=== PATIENT | female | born 1940 | race Caucasian/White ===

== ENCOUNTER 2018-11-14 08:38 | Outpatient (CLI) | payer MEDICARE, OTHER ==
--- NOTE | 2018-11-14 10:37 | RAD ---
CHEST 2 VIEWS: HISTORY: Shortness of breath, cough. FINDINGS: Heart size is within normal limits. Atherosclerotic changes are noted of the aorta. No confluent pn eumonia, overt edema, or pleural effusion. IMPRESSION: No significant acute intrathoracic disease. Atherosclerosis of the aorta. POS: TPC
== END 2018-11-14 08:39 | disposition home or self-care (01) ==
LOC: BICRAD 08:38
PROVIDERS: ATTEND Family Medicine
DX: R06.02 Shortness of breath (principal); I70.0 Atherosclerosis of aorta
CPT/HCPCS: 71046

== ENCOUNTER 2019-09-10 09:11 | Outpatient (CLI) | payer MEDICARE ==
--- NOTE | 2019-09-10 10:40 | MMO ---
Bilateral MAMMO Bilat Screen [facility]. CLINICAL HISTORY: Patient is 79 years old and is seen for screening. The patient has the following family history of breast cancer: mother, at age 73; sister, at age 51 and sister, at age 58. VIEWS: The views performed were: bilateral craniocaudal with tomosynthesis and bilateral mediolateral oblique with tomosynthesis. FILMS COMPARED: The present examination has been compared to prior imaging studies performed at [facility] on 10/08/2008, 10/18/2009, 10/19/2010 and 08/05/2014. This study has been interpreted with the assistance of computer-aided detection. MAMMOGRAM FINDINGS: There are scattered fibroglandular densities. There is a focal asymmetry seen in the middle region of the left breast at 9 o'clock. In the right breast, there are no suspicious masses, calcifications or areas of architectural distortion. IMPRESSION: FOCAL ASYMMETRY IN THE LEFT BREAST REQUIRES ADDITIONAL EVALUATION. SPOT COMPRESSION IS RECOMMENDED. AN ULTRASOUND EXAM IS RECOMMENDED. THE RESULTS OF THIS EXAM WERE SENT TO THE PATIENT. ACR BI-RADS Category 0 - Incomplete: Need additional imaging evaluation. [place] [facility] will notify the patient of the need for additional imaging services. MAMMOGRAPHY NOTE: 1. A negative mammogram report should not delay a biopsy if a dominant of clinically suspicious mass is present. 2. Approximately 10% to 15% of breast cancers are not detected by mammography. 3. Adenosis and dense breasts may obscure an underlying neoplasm. Reported by: Jose G MCKAY Electonically Signed: [id number]
== END 2019-09-10 09:12 | disposition home or self-care (01) ==
LOC: BICMAMMO 09:11
PROVIDERS: ATTEND Family Medicine
DX: Z12.31 Encounter for screening mammogram for malignant neoplasm of breast (principal); N64.89 Other specified disorders of breast; Z80.3 Family history of malignant neoplasm of breast
CPT/HCPCS: 77063; 77067

== ENCOUNTER 2020-03-03 08:13 | Outpatient (CLI) | payer MEDICARE ==
--- NOTE | 2020-03-03 09:09 | MMO ---
Left Breast MAMMO Unilat Diag [facility]. CLINICAL HISTORY: Patient is 79 years old and is seen for diagnostic exam. The patient has the following family history of breast cancer: mother, at age 73; sister, at age 51 and sister, at age 58. VIEWS: The views performed were: left craniocaudal with tomosynthesis; left mediolateral oblique with tomosynthesis; and left mediolateral with tomosynthesis. FILMS COMPARED: The present examination has been compared to prior imaging studies performed at [facility] on 09/10/2019, 09/16/2019 and 03/03/2020. This study has been interpreted with the assistance of computer-aided detection. MAMMOGRAM FINDINGS: There are scattered fibroglandular densities. The nodule in the left inner breast remains stable. IMPRESSION: FINDING IN THE LEFT BREAST IS PROBABLY BENIGN. FOLLOW-UP IN 6 MONTHS IS RECOMMENDED. THE RESULTS OF THIS EXAM WERE SENT TO THE PATIENT. ACR BI-RADS Category 3 - Probably benign finding - short interval follow-up suggested. [facility] will notify the patient of the need for additional imaging services. MAMMOGRAPHY NOTE: 1. A negative mammogram report should not delay a biopsy if a dominant of clinically suspicious mass is present. 2. Approximately 10% to 15% of breast cancers are not detected by mammography. 3. Adenosis and dense breasts may obscure an underlying neoplasm. Reported by: LEVON SOLO MD Electonically Signed: [id number]
--- NOTE | 2020-03-03 09:24 | ULT ---
LEFT BREAST ULTRASOUND: HISTORY: Six-month followup. COMPARISON: Correlation is made with a mammogram of today and comparison is made with ultrasound of 09/16/2019. FINDINGS: The sonographic evaluation of the left upper inner breast redemonstrates a 10 x 6 x 3 mm cyst with se ptation at 10:00. IMPRESSION: BIRADS category 3 - probably benign findings. Followup left diagnostic mammogram and ultrasound is r ecommended in 6 months. POS: OFF
== END 2020-03-03 08:14 | disposition home or self-care (01) ==
LOC: BICMAMMO 08:13
PROVIDERS: ATTEND Family Medicine
DX: N60.02 Solitary cyst of left breast (principal); Z80.3 Family history of malignant neoplasm of breast
CPT/HCPCS: 76642; 77065; G0279

== ENCOUNTER 2020-09-08 10:18 | Outpatient (CLI) | payer MEDICARE | END 2020-09-08 10:19 | disposition home or self-care (01) | LOC: BICMAMMO 10:18 | PROVIDERS: ATTEND Family Medicine | DX: N60.02 Solitary cyst of left breast (principal); N63.20 Unspecified lump in the left breast, unspecified quadrant | CPT/HCPCS: 76642; 77066; G0279 ==

== ENCOUNTER 2021-09-14 09:40 | Outpatient (CLI) | payer MEDICARE | END 2021-09-14 09:41 | disposition home or self-care (01) | LOC: BICMAMMO 09:40 | PROVIDERS: ATTEND Family Medicine | DX: N63.20 Unspecified lump in the left breast, unspecified quadrant (principal); N60.02 Solitary cyst of left breast | CPT/HCPCS: 77066; G0279 ==

== ENCOUNTER 2023-08-25 04:36 | Inpatient (IN) | payer MEDICARE ==
[2023-08-25 08:40] LABS: #Basophils 0.04 10x3/uL (0.0-0.2); %Basophils 0.2 % (0.0-1.0); %Eosinophils 0.4 % (0.0-10.0); %Lymphocytes 12.9 % (21.0-51.0); %Monocytes 9.8 % (0.0-10.0); %Neutrophils 76.2 % (42.0-75.0); Hematocrit 40.4 % (36.0-47.0); Hemoglobin 13.3 g/dL (12.0-16.0); Mean Corpuscular HGB CONC 32.9 g/dL (32.0-36.0); Mean Corpuscular Hemoglobin 29.8 pg (27.0-31.0); Mean Corpuscular Volume 90.6 fL (78.0-98.0); Mean Platelet Volume 10.1 fL (7.4-10.4); Platelet Count 183 10x3/uL (130-400); RBC Distribution Width 14.3 % (11.5-14.5); Red Blood Cell (RBC) Count 4.46 mill/uL (4.20-5.40)
[2023-08-25 08:54] LABS: INR-International Normal Ratio 1.2; PTT 29.5 sec (22.9-36.1); Prothrombin Time 15.2 sec (12.0-14.7)
[2023-08-25 08:57] LABS: Globulin 3.7 g/dL (2.4-3.5)
[2023-08-25 09:02] LABS: Albumin 2.7 g/dL (3.4-4.8); Anion Gap 13 mmol/L (10-20); BUN (Urea Nitrogen) 16 mg/dL (9.8-20.1); Calc. Creatinine Clearance 62 mL/min (70-130); Carbon Dioxide 26 mmol/L (23-31); Chloride 98 mmol/L (98-107); Estimated GFR 68; Potassium 3.9 mmol/L (3.5-5.1); Protein, Total 6.4 g/dL (5.8-8.1); Sodium 133 mmol/L (136-145)
[2023-08-25 09:04] LABS: Troponin I 0.015 ng/mL (< 0.028)
[2023-08-25 09:13] LABS: ALT (SGPT) 49 U/L (8-55); AST (SGOT) 53 U/L (5-34); Alkaline Phosphatase 136 U/L (40-110); Bilirubin, Total 1.2 mg/dL (0.2-1.2); Glucose 109 mg/dL (83-110); Magnesium 1.7 mg/dL (1.6-2.6)
[2023-08-25 11:49] LABS: Troponin I 0.016 ng/mL (< 0.028)
[2023-08-25] MEDS: Morphine 2 MG/ML VIAL SLOW IVP SCH ×2 (17:48→18:15)
[2023-08-25] MEDS: Morphine 4 MG/ML VIAL ONE ×2 (17:50→18:48)
[2023-08-25] MEDS: Amiodarone 450 MG in Dextrose 5% in Water 250 ML IVPB SCH (17:56)
[2023-08-25] MEDS ORDERED: Loratadine 10 MG TAB PO PRN (19:13)
[2023-08-25] MEDS: Enoxaparin 80 MG (0.8 mL) SYRINGE SC SCH (19:40)
[2023-08-25] MEDS: cloNIDine 0.2 MG TAB PO SCH (19:40)
[2023-08-25] MEDS: Ondansetron PF 4 MG/2 ML Vial IVP PRN (19:41)
[2023-08-25] MEDS: Atenolol 25 MG TAB PO SCH (19:41)
[2023-08-25] MEDS ORDERED: Ondansetron ODT 4 MG TAB PO SCH (23:59)
[2023-08-26] MEDS: Ketorolac Tromethamine 30 MG (1 mL) VIAL IVP SCH (00:25)
[2023-08-26] MEDS: traMADol HCl 50 MG TAB PO PRN (00:26)
[2023-08-26] MEDS: Levothyroxine Sodium 50 MCG TAB PO SCH (05:10)
[2023-08-26 05:56] LABS: #Basophils 0.04 10x3/uL (0.0-0.2); %Basophils 0.2 % (0.0-1.0); %Eosinophils 0.4 % (0.0-10.0); %Lymphocytes 11.2 % (21.0-51.0); %Monocytes 9.8 % (0.0-10.0); %Neutrophils 77.7 % (42.0-75.0); Hematocrit 35.9 % (36.0-47.0); Hemoglobin 11.9 g/dL (12.0-16.0); Mean Corpuscular HGB CONC 33.1 g/dL (32.0-36.0); Mean Corpuscular Hemoglobin 30.4 pg (27.0-31.0); Mean Corpuscular Volume 91.8 fL (78.0-98.0); Mean Platelet Volume 10.1 fL (7.4-10.4); Platelet Count 184 10x3/uL (130-400); RBC Distribution Width 14.4 % (11.5-14.5); Red Blood Cell (RBC) Count 3.91 mill/uL (4.20-5.40)
[2023-08-26 06:02] LABS: Hemoglobin A1c 5.4 % (4.0-6.0)
[2023-08-26 06:27] LABS: ALT (SGPT) 32 U/L (8-55); AST (SGOT) 25 U/L (5-34); Albumin 2.4 g/dL (3.4-4.8); Alkaline Phosphatase 112 U/L (40-110); Bilirubin, Direct 0.3 mg/dL (0.1-0.3); Bilirubin, Total 0.9 mg/dL (0.2-1.2); Protein, Total 5.7 g/dL (5.8-8.1)
[2023-08-26 06:30] LABS: Anion Gap 13 mmol/L (10-20); BUN (Urea Nitrogen) 20 mg/dL (9.8-20.1); Calc. Creatinine Clearance 54 mL/min (70-130); Calcium 9.7 mg/dL (7.8-10.44); Carbon Dioxide 22 mmol/L (23-31); Cardiac Risk 3.6 (Less than 4.5); Chloride 99 mmol/L (98-107); Cholesterol 165 mg/dl (< 200 Desired); Estimated GFR 56; Glucose 111 mg/dL (83-110); HDL Cholesterol 46 mg/dL (>60 Neg Risk); LDL Cholesterol, Calculated 103 mg/dL; Magnesium 1.7 mg/dL (1.6-2.6); Potassium 4.6 mmol/L (3.5-5.1); Sodium 129 mmol/L (136-145); Triglycerides 82 mg/dL (Less than 150)
[2023-08-26] MEDS: cloNIDine 0.1 MG TAB PO SCH (09:51)
[2023-08-26] MEDS: Allopurinol 100 MG TAB PO SCH (09:51)
[2023-08-26] MEDS: Losartan 25 MG TAB PO SCH (09:52)
[2023-08-26] MEDS: Spironolactone 25 MG TAB PO SCH (09:53)
[2023-08-26] MEDS: Magnesium Oxide 400 MG TAB PO SCH (20:16)
[2023-08-26] MEDS: Amiodarone 200 MG TAB PO SCH (20:16)
[2023-08-26 22:45] LABS: Anion Gap 17 mmol/L (10-20); BUN (Urea Nitrogen) 24 mg/dL (9.8-20.1); Calc. Creatinine Clearance 49 mL/min (70-130); Calcium 10.2 mg/dL (7.8-10.44); Carbon Dioxide 22 mmol/L (23-31); Chloride 95 mmol/L (98-107); Estimated GFR 50; Glucose 91 mg/dL (83-110); Potassium 4.7 mmol/L (3.5-5.1); Sodium 129 mmol/L (136-145)
[2023-08-26] MEDS: Morphine 2 MG/ML VIAL SLOW IVP SCH (23:07)
[2023-08-27] MEDS ORDERED: Bupivacaine PF 0.5% 30 ML VIAL ONE (06:56)
[2023-08-27] MEDS ORDERED: EPINEPHrine 1 MG/ML VIAL ONE (06:56)
[2023-08-27] MEDS ORDERED: CEFAZOLIN 2 GM VIAL ONE (07:20)
[2023-08-27] MEDS ORDERED: Sodium Chloride 0.9% 100 ML ONE (07:21)
[2023-08-27] MEDS ORDERED: Rocuronium Bromide 10 MG/ML (10ML VIAL) ONE (07:31)
[2023-08-27] MEDS ORDERED: PROPOFOL 20 ML ONE (07:31)
[2023-08-27] MEDS ORDERED: fentaNYL 50 mcg/mL 1 mL Vial ONE ×3 (07:31→11:18)
[2023-08-27] MEDS ORDERED: PHENYLEPHRINE-NS 100 MCG/ML 10 ML SYRINGE ONE (08:03)
[2023-08-27] MEDS ORDERED: Ondansetron PF 4 MG/2 ML Vial ONE (09:01)
[2023-08-27] MEDS ORDERED: Metoclopramide HCl 10 MG (2 mL) VIAL ONE (09:02)
[2023-08-27 09:15] LABS: Anion Gap 13 mmol/L (10-20); BUN (Urea Nitrogen) 23 mg/dL (9.8-20.1); Calc. Creatinine Clearance 54 mL/min (70-130); Calcium 10.1 mg/dL (7.8-10.44); Carbon Dioxide 26 mmol/L (23-31); Chloride 94 mmol/L (98-107); Estimated GFR 56; Glucose 109 mg/dL (83-110); Magnesium 1.8 mg/dL (1.6-2.6); Potassium 4.4 mmol/L (3.5-5.1); Sodium 129 mmol/L (136-145)
[2023-08-27 09:55] LABS: #Basophils 0.04 10x3/uL (0.0-0.2); %Basophils 0.2 % (0.0-1.0); %Eosinophils 0.6 % (0.0-10.0); %Lymphocytes 11.4 % (21.0-51.0); %Monocytes 6.7 % (0.0-10.0); %Neutrophils 80.7 % (42.0-75.0); Hematocrit 39.5 % (36.0-47.0); Hemoglobin 12.7 g/dL (12.0-16.0); Mean Corpuscular HGB CONC 32.2 g/dL (32.0-36.0); Mean Corpuscular Hemoglobin 29.5 pg (27.0-31.0); Mean Corpuscular Volume 91.9 fL (78.0-98.0); Mean Platelet Volume 10.7 fL (7.4-10.4); Platelet Count 225 10x3/uL (130-400)
[2023-08-27] MEDS ORDERED: Promethazine HCl 25 MG/ML VIAL IM PRN (10:07)
[2023-08-27] MEDS ORDERED: Ipratropium/Albuterol 3 ML NEB NEB PRN (10:07)
[2023-08-27] MEDS ORDERED: SUGAMMADEX SODIUM 200 MG/2 ML VIAL ONE (10:08)
[2023-08-27] MEDS ORDERED: fentaNYL PF 100 MCG/2 ML SYRINGE ONE ×2 (10:26→12:35)
[2023-08-27] MEDS ORDERED: Promethazine HCl 25 MG/ML VIAL ONE (11:10)
[2023-08-27] MEDS: Magnesium Oxide 400 MG TAB PO SCH (16:47)
[2023-08-27] MEDS: Morphine 2 MG/ML VIAL SLOW IVP PRN (16:48)
[2023-08-27] MEDS: CEFAZOLIN 2 GM in Sodium Chloride 0.9% 100 ML IVPB SCH (16:51)
[2023-08-27] MEDS: Morphine 2 MG/ML VIAL SLOW IVP SCH (19:01)
[2023-08-27] MEDS: hydrALAZINE 20 MG/ML VIAL SLOW IVP PRN (19:01)
[2023-08-27] MEDS: traMADol HCl 50 MG TAB PO PRN (19:40)
[2023-08-27] MEDS: Acetaminophen 325 MG TAB PO PRN (20:58)
[2023-08-27] MEDS: Morphine 4 MG/ML VIAL SLOW IVP PRN (20:59)
[2023-08-27] MEDS: Metoprolol Tartrate 5 MG (5 mL) VIAL IVP PRN (22:25)
[2023-08-27] MEDS: Ketorolac Tromethamine 30 MG (1 mL) VIAL IVP SCH (23:41)
[2023-08-28 01:38] LABS: Anion Gap 13 mmol/L (10-20); BUN (Urea Nitrogen) 16 mg/dL (9.8-20.1); Calc. Creatinine Clearance 67 mL/min (70-130); Calcium 9.5 mg/dL (7.8-10.44); Carbon Dioxide 22 mmol/L (23-31); Chloride 98 mmol/L (98-107); Estimated GFR 74; Glucose 126 mg/dL (83-110); Potassium 4.4 mmol/L (3.5-5.1); Sodium 129 mmol/L (136-145)
[2023-08-28 04:21] LABS: #Basophils Less than 0.03 10x3/uL (0.0-0.2); #Eosinphils Less than 0.03 10x3/uL (0.0-0.7); %Basophils 0.2 % (0.0-1.0); %Eosinophils 0.1 % (0.0-10.0); %Lymphocytes 7.8 % (21.0-51.0); %Monocytes 6.9 % (0.0-10.0); %Neutrophils 84.5 % (42.0-75.0); Hematocrit 31.6 % (36.0-47.0); Hemoglobin 10.1 g/dL (12.0-16.0); Mean Corpuscular Hemoglobin 29.4 pg (27.0-31.0); Mean Corpuscular Volume 92.1 fL (78.0-98.0); Mean Platelet Volume 10.1 fL (7.4-10.4); Platelet Count 196 10x3/uL (130-400); RBC Distribution Width 14.1 % (11.5-14.5); Red Blood Cell (RBC) Count 3.43 mill/uL (4.20-5.40)
[2023-08-28 04:47] LABS: Globulin 3.2 g/dL (2.4-3.5)
[2023-08-28 04:51] LABS: ALT (SGPT) 30 U/L (8-55); AST (SGOT) 27 U/L (5-34); Alkaline Phosphatase 171 U/L (40-110); Anion Gap 12 mmol/L (10-20); BUN (Urea Nitrogen) 16 mg/dL (9.8-20.1); Bilirubin, Total 0.5 mg/dL (0.2-1.2); Calc. Creatinine Clearance 67 mL/min (70-130); Calcium 9.2 mg/dL (7.8-10.44); Carbon Dioxide 25 mmol/L (23-31); Chloride 98 mmol/L (98-107); Estimated GFR 68; Glucose 109 mg/dL (83-110); Magnesium 1.7 mg/dL (1.6-2.6); Potassium 4.6 mmol/L (3.5-5.1); Protein, Total 5.2 g/dL (5.8-8.1); Sodium 130 mmol/L (136-145)
[2023-08-28] MEDS: Albumin 25% 25 GM (100 mL) BOT IVPB SCH ×2 (06:46→12:30)
[2023-08-28] MEDS: Lidocaine 4% Patch TD SCH (08:48)
[2023-08-28] MEDS: HYDROcodone/Acetaminophen 5/325 mg Tablet PO PRN (09:18)
[2023-08-28] MEDS: Amlodipine 5 MG TAB PO SCH (18:35)
[2023-08-28] MEDS: Milk Of Magnesia 30 ML UDCUP PO SCH (21:19)
[2023-08-28] MEDS: Senokot S 8.6-50 MG TAB PO SCH (21:19)
[2023-08-29 04:56] LABS: #Basophils 0.03 10x3/uL (0.0-0.2); %Basophils 0.3 % (0.0-1.0); %Eosinophils 2.4 % (0.0-10.0); %Monocytes 6.4 % (0.0-10.0); %Neutrophils 68.5 % (42.0-75.0); Hematocrit 30.5 % (36.0-47.0); Hemoglobin 9.9 g/dL (12.0-16.0); Mean Corpuscular HGB CONC 32.5 g/dL (32.0-36.0); Mean Corpuscular Hemoglobin 29.1 pg (27.0-31.0); Mean Corpuscular Volume 89.7 fL (78.0-98.0); Platelet Count 190 10x3/uL (130-400); RBC Distribution Width 13.7 % (11.5-14.5)
[2023-08-29 05:04] LABS: Globulin 2.6 g/dL (2.4-3.5)
[2023-08-29 05:08] LABS: ALT (SGPT) 18 U/L (8-55); AST (SGOT) 25 U/L (5-34); Alkaline Phosphatase 187 U/L (40-110); Anion Gap 13 mmol/L (10-20); BUN (Urea Nitrogen) 17 mg/dL (9.8-20.1); Bilirubin, Total 0.8 mg/dL (0.2-1.2); Calc. Creatinine Clearance 75 mL/min (70-130); Calcium 9.8 mg/dL (7.8-10.44); Carbon Dioxide 25 mmol/L (23-31); Chloride 98 mmol/L (98-107); Estimated GFR 78; Glucose 88 mg/dL (83-110); Magnesium 1.9 mg/dL (1.6-2.6); Potassium 4.1 mmol/L (3.5-5.1); Protein, Total 5.6 g/dL (5.8-8.1); Sodium 132 mmol/L (136-145)
[2023-08-29] MEDS: Furosemide 20 MG (2 mL) VIAL SLOW IVP SCH (09:38)
[2023-08-29] MEDS: Ibuprofen 600 MG TAB PO SCH (13:09)
[2023-08-29] MEDS: Amlodipine 5 MG TAB PO SCH (13:10)
[2023-08-30 04:30] LABS: #Basophils 0.04 10x3/uL (0.0-0.2); %Basophils 0.4 % (0.0-1.0); %Eosinophils 3.6 % (0.0-10.0); %Lymphocytes 23.9 % (21.0-51.0); %Monocytes 7.3 % (0.0-10.0); %Neutrophils 64.4 % (42.0-75.0); Hematocrit 34.1 % (36.0-47.0); Hemoglobin 11.4 g/dL (12.0-16.0); Mean Corpuscular HGB CONC 33.4 g/dL (32.0-36.0); Mean Corpuscular Hemoglobin 29.6 pg (27.0-31.0); Mean Corpuscular Volume 88.6 fL (78.0-98.0); Mean Platelet Volume 9.4 fL (7.4-10.4); Platelet Count 265 10x3/uL (130-400); RBC Distribution Width 13.5 % (11.5-14.5); Red Blood Cell (RBC) Count 3.85 mill/uL (4.20-5.40)
[2023-08-30 04:49] LABS: Anion Gap 13 mmol/L (10-20); BUN (Urea Nitrogen) 16 mg/dL (9.8-20.1); Calc. Creatinine Clearance 55 mL/min (70-130); Calcium 9.9 mg/dL (7.8-10.44); Carbon Dioxide 29 mmol/L (23-31); Chloride 96 mmol/L (98-107); Estimated GFR 56; Glucose 95 mg/dL (83-110); Magnesium 1.9 mg/dL (1.6-2.6); Potassium 3.6 mmol/L (3.5-5.1); Sodium 134 mmol/L (136-145)
[2023-08-30 05:21] VITALS: BMI 29.4
[2023-08-30] MEDS: Amlodipine 5 MG TAB PO SCH (07:53)
[2023-08-30] MEDS: Furosemide 20 MG (2 mL) VIAL SLOW IVP SCH (09:07)
[2023-08-31 04:20] LABS: RBC Distribution Width 13.5 % (11.5-14.5)
[2023-08-31 04:38] LABS: Anion Gap 14 mmol/L (10-20); BUN (Urea Nitrogen) 19 mg/dL (9.8-20.1); Calc. Creatinine Clearance 55 mL/min (70-130); Calcium 9.5 mg/dL (7.8-10.44); Carbon Dioxide 27 mmol/L (23-31); Chloride 97 mmol/L (98-107); Estimated GFR 58; Glucose 90 mg/dL (83-110); Magnesium 1.8 mg/dL (1.6-2.6); Potassium 3.1 mmol/L (3.5-5.1); Sodium 135 mmol/L (136-145)
[2023-08-31 04:52] LABS: #Basophils Less than 0.03 10x3/uL (0.0-0.2); %Basophils 0.2 % (0.0-1.0); %Eosinophils 4.9 % (0.0-10.0); %Lymphocytes 29.8 % (21.0-51.0); %Monocytes 7.1 % (0.0-10.0); %Neutrophils 57.6 % (42.0-75.0); Hematocrit 32.1 % (36.0-47.0); Hemoglobin 10.8 g/dL (12.0-16.0); Mean Corpuscular HGB CONC 33.6 g/dL (32.0-36.0); Mean Corpuscular Hemoglobin 29.4 pg (27.0-31.0); Mean Corpuscular Volume 87.5 fL (78.0-98.0); Mean Platelet Volume 9.5 fL (7.4-10.4); Platelet Count 260 10x3/uL (130-400); Red Blood Cell (RBC) Count 3.67 mill/uL (4.20-5.40)
[2023-08-31] MEDS: Magnesium 2 GM/50 ML(in water) 2 GM in Premix 1 BAG IVPB SCH (08:27)
[2023-08-31] MEDS: Potassium Chloride 20 MEQ TAB PO SCH (08:28)
[2023-08-31] MEDS: Spironolactone 25 MG TAB PO SCH (08:29)
[2023-08-31 11:44] VITALS: BP 136/100; TEMP 97.6
== END 2023-08-31 14:00 | disposition home or self-care (01) | DRG 270 ==
LOC: 2NO 06:40 → CCU 08-27 07:52 → 2NO 08-27 16:36
PROVIDERS: ADMIT Internal Medicine; ATTEND Internal Medicine
PROC: 0W9D4ZZ Drainage of Pericardial Cavity, Percutaneous Endoscopic Approach (ICD-10-PCS; principal; 2023-08-27)
PROC: 0W9B4ZZ Drainage of Left Pleural Cavity, Percutaneous Endoscopic Approach (ICD-10-PCS; 2023-08-27)
PROC: 3E033XZ Introduction of Vasopressor into Peripheral Vein, Percutaneous Approach (ICD-10-PCS; 2023-08-27)
PROC: 30233J1 Transfusion of Nonautologous Serum Albumin into Peripheral Vein, Percutaneous Approach (ICD-10-PCS; 2023-08-28)
DX: T82.7XXA Infection and inflammatory reaction due to other cardiac and vascular devices, implants and grafts, initial encounter (principal); J15.7 Pneumonia due to Mycoplasma pneumoniae; J96.01 Acute respiratory failure with hypoxia; E22.2 Syndrome of inappropriate secretion of antidiuretic hormone; I50.32 Chronic diastolic (congestive) heart failure; I13.0 Hypertensive heart and chronic kidney disease with heart failure and stage 1 through stage 4 chronic kidney disease, or unspecified chronic kidney disease; I31.39 Other pericardial effusion (noninflammatory); E88.09 Other disorders of plasma-protein metabolism, not elsewhere classified; N18.2 Chronic kidney disease, stage 2 (mild); D72.829 Elevated white blood cell count, unspecified; I48.0 Paroxysmal atrial fibrillation; E83.42 Hypomagnesemia; E03.9 Hypothyroidism, unspecified; K59.00 Constipation, unspecified; Z66 Do not resuscitate; Z79.899 Other long term (current) drug therapy; Z79.01 Long term (current) use of anticoagulants; Z88.8 Allergy status to other drugs, medicaments and biological substances; Z90.710 Acquired absence of both cervix and uterus; Z90.49 Acquired absence of other specified parts of digestive tract; I49.5 Sick sinus syndrome; E78.5 Hyperlipidemia, unspecified; K21.9 Gastro-esophageal reflux disease without esophagitis; M10.9 Gout, unspecified; R55 Syncope and collapse; I11.0 Hypertensive heart disease with heart failure; I50.9 Heart failure, unspecified; Z95.0 Presence of cardiac pacemaker
CPT/HCPCS: 36415; 36416; 51701; 70450; 71045; 71275; 72125; 80048; 80053; 80061; 80076; 81001; 83036; 83605; 83735; 83930; 83935; 84484; 85025; 85610; 85730; 86850; 86900; 86901; 87040; 87070; 87086; 87205; 88112; 88305; 93005; 93306; 94760; 96365; 96366; 96367; 96375; 96376; J0171; J0282; J0360; J0665; J0696; J1650; J1885; J1940; J2270; J2272; J2405; J2550; J2704; J2765; J3010; J3370; J3475; J3490; J7070; P9047; Q9967

== ENCOUNTER 2023-09-19 12:57 | Outpatient (CLI) | payer MEDICARE | END 2023-09-19 12:58 | disposition home or self-care (01) | LOC: RAD 12:57 | PROVIDERS: ATTEND Student in an Organized Health Care Education/Training Program | DX: I31.39 Other pericardial effusion (noninflammatory) (principal); J90 Pleural effusion, not elsewhere classified | CPT/HCPCS: 71046 ==

== ENCOUNTER 2025-02-26 02:12 | Emergency (ER) | payer MEDICARE ==
[2025-02-26] MEDS ORDERED: Ondansetron PF 4 MG/2 ML Vial ONE (02:44)
[2025-02-26] MEDS ORDERED: Famotidine/PF 20 mg/2ml Vial ONE (02:45)
[2025-02-26 02:47] LABS: #Basophils Less than 0.03 10x3/uL (0.0-0.2); #Eosinophils Less than 0.03 10x3/uL (0.0-0.7); #Monocytes 0.62 10x3/uL (0.11-0.59); #Neutrophils 12.56 10x3/uL (1.40-6.50); %Basophils 0.1 % (0.0-1.0); %Eosinophils 0.1 % (0.0-10.0); %Lymphocytes 8.4 % (21.0-51.0); %Monocytes 4.3 % (0.0-10.0); %Neutrophils 86.8 % (42.0-75.0); Hematocrit 45.7 % (36.0-47.0); Hemoglobin 15.1 g/dL (12.0-16.0); Mean Corpuscular Hemoglobin 30.0 pg (27.0-31.0); Mean Corpuscular Volume 90.9 fL (78.0-98.0); Platelet Count 269 10x3/uL (130-400); Red Blood Cell (RBC) Count 5.03 mill/uL (4.20-5.40); White Blood Cell (WBC) Count 14.49 10x3/uL (4.8-10.8)
[2025-02-26 03:04] LABS: ALT (SGPT) 12 U/L (Less than 34); AST (SGOT) 21 U/L (11-34); Albumin 4.0 g/dL (3.1-4.5); Alkaline Phosphatase 97 U/L (40-110); Anion Gap 13 mmol/L (10-20); BUN (Urea Nitrogen) 20 mg/dL (9.8-20.1); Bilirubin, Total 0.4 mg/dL (0.3-1.2); Calc. Creatinine Clearance 0 mL/min (70-130); Calcium 10.8 mg/dL (7.8-10.44); Carbon Dioxide 24 mmol/L (23-31); Chloride 101 mmol/L (98-107); Globulin 3.5 g/dL (2.4-3.5); Glucose 149 mg/dL (83-110); Lipase 28 U/L (8-78); Potassium 4.1 mmol/L (3.5-5.1); Sodium 134 mmol/L (136-145)
[2025-02-26 03:55] LABS: Bacteria/HPF None Seen HPF (None Seen); CAUTI Indications for Culture Pelvic or flank pain; Glucose, Urine (Dipstick) Greater than 1000 mg/dL (Negative); Leukocyte Negative Leu/uL (Negative); Protein, Urine (Dipstick) Negative (Neg-Trace); RBC/HPF 0-3 HPF (0-3); Specific Gravity, Urine 1.021 (1.002-1.036); WBC/HPF 0-3 HPF (0-3)
[2025-02-26 03:58] LABS: Urine Culture Reflex No No
== END 2025-02-26 05:27 | disposition home or self-care (01) ==
LOC: ERS 02:12
DX: K59.00 Constipation, unspecified (principal); I11.0 Hypertensive heart disease with heart failure; I50.9 Heart failure, unspecified; Z95.0 Presence of cardiac pacemaker
CPT/HCPCS: 74177; 80053; 81001; 83690; 85025; 96374; 96375; J1308; J2270; J2405